=== PATIENT | male | born 1995 | race Two or more races ===

== ENCOUNTER 2024-11-18 07:58 | Emergency (ER) | payer MEDICAID, SELFPAY ==
[2024-11-18] VITALS (9 sets, daily range): BP systolic 141–153; BP diastolic 79–93; PULSE 70–88; RESP 15–19; TEMP 36.8–37.1; O2SAT 93–98; BMI 26.6
--- NOTE | 2024-11-18 | XR_ITS ---
MRI abdomen, without contrast. MRCP Date and time of exam: November 18, 2024 1741 hours INDICATIONS: Nausea vomiting beginning 1 week ago unable to eat 3 days Technique: Multiple axial and coronal images of the abdomen have been obtained with the Siemens 1.5T MRI scanner. Images obtained included T1 weighted transverse images, T2-weighted transverse images, T2-weighted transverse images fat-suppressed, T2 weighted haste fat suppressed transverse images, T1 weighted images, in and out of phase images, T2-weighted coronal images, breath hold, T2 weighted haze coronal images as well as T2 weighted coronal thick slab images, MRCP. Findings: Hepatomegaly 22 cm Negative for cholelithiasis, no convincing findings of cholecystitis Normal common hepatic common bile duct no stones No dilated pancreatic duct, no pancreatic edema and Negative for splenomegaly Aorta normal size No ascites No hydronephrosis Aorta normal size IMPRESSION: Hepatomegaly, 22 cm no focal liver lesions Negative for cholelithiasis, negative for cholecystitis No common hepatic or common bile duct stones. Negative for pancreatitis
--- NOTE | 2024-11-18 08:06 | EKG_ITS ---
[facility] Test Date: 2024-11-18 Pat Name: RORO DE OLIVEIRA Department: Room: - Gender: Male Specialist Wound Care: : 1995 Requested By: Gloria Arizmendi Order Number: [id number] Reading MD: Gloria Arizmendi Measurements Intervals [place] Rate: 81 P: 43 ID: [id number] QRS: 42 QRSD: 108 T: 41 QT: 387 QTc: 452 Interpretive Statements SINUS RHYTHM NONSPECIFIC T-WAVE ABNORMALITY No previous ECG available for comparison /store/S0/[id number]/ecg/[id number].pdf
--- NOTE | 2024-11-18 08:13 | PD.EDRME ---
Rapid Medical Screening Exam E Arrival date/time: 11/18/24 07:58 29-year-old male with no known medical history presents to the emergency room with a chief complaint of chest pain, palpitations, numbness to his bilateral hands, vomiting, diarrhea x 3 days. Patient states he is an alcoholic and drinks alcohol every day. I have greeted and performed a focused initial assessment of this patient. A comprehensive ED assessment and evaluation of the patient, analysis of all test results, and completion of the medical decision making process will be conducted by additional ED providers. Chief Complaint: Nausea/Vomiting/Diarrhea Time Seen by Provider: 11/18/24 08:06 Vital signs: Vital Signs Temperature 98.3 F 11/18/24 08:06 Pulse Rate 87 11/18/24 08:06 Respiratory Rate 18 11/18/24 08:06 Blood Pressure 144/92 H 11/18/24 08:06 Pulse Oximetry (%) 96 11/18/24 08:06 Oxygen Delivery Method Room Air 11/18/24 08:06 Vital signs reviewed by provider: Yes
[2024-11-18 09:07] LABS: Basophils # (Auto) 0.1 Thou/mm3 (0.0-0.2); Basophils % (Auto) 1 % (0-2.5); Eosinophils # (Auto) 0.0 Thou/mm3 (0.0-0.5); Eosinophils % (Auto) 1 % (0-10); Hematocrit 43.0 % (41.0-53.0); Hemoglobin 14.5 g/dL (13.5-16.0); Immature Granulocytes Auto 0.02 Thou/mm3 (0.00-0.00); Lymphocytes # (Auto) 1.1 Thou/mm3 (1.0-4.8); Lymphocytes % (Auto) 16 % (10-50); Mean Corpuscular HGB Conc 33.7 g/dl (31.0-37.0); Mean Corpuscular Hemoglobin 28.7 pg (25.0-35.0); Mean Corpuscular Volume 85 fL (80-100); Monocytes # (Auto) 0.7 Thou/mm3 (0.0-0.8); Monocytes % (Auto) 9 % (0-12); Neutrophils # (Auto) 5.1 Thou/mm3 (1.8-7.7); Neutrophils % (Auto) 73 % (37-80); Nucleated Red Blood Cell # 0.00 Thou/mm3 (0.00-0.00); Nucleated Red Blood Cell % 0 /100 WBC (0); Platelet Count 259 Thou/mm3 (140-440); RDW Standard Deviation 43.4 fL (35.1-43.9); Red Blood Count 5.05 Miln/mm3 (4.50-5.90); White Blood Count 7.1 Thou/mm3 (3.8-10.6)
[2024-11-18 09:11] LABS: Collection Type, Urine Clean Catch
[2024-11-18 09:24] LABS: Amphetamine/Methamp Scrn,U Negative (Negative); Barbiturate Screen,Urine Negative (Negative); Benzodiazepines Screen,Urine Negative (Negative); Benzoylecgonine Screen, Ur Negative (Negative); Fentanyl Screen,Urine Negative (Negative); Opiate Screen,Urine Negative (Negative); THC Screen,Urine Negative (Negative)
[2024-11-18 09:26] LABS: Alanine Aminotransferase 154 U/L (10-49); Albumin, Serum 4.9 gm/dL (3.5-5.0); Albumin/Globulin Ratio 1.4 (1.2-2.2); Alcohol, Blood Medical 31.7 mg/dL (0-10.0); Alkaline Phosphatase 146 U/L (46-116); Anion Gap 13 (7-16); Aspartate Amino Transferase 251 U/L (0-34); BUN/Creatinine Ratio 5 Ratio (12-20); Bilirubin,Total 2.0 mg/dL (0.3-1.2); Blood Urea Nitrogen < 5 mg/dL (9-23); Calcium 9.7 mg/dL (8.3-10.6); Calcium (Corrected) 9.7 mg/dL (8.5-10.1); Carbon Dioxide 31.5 mMol/L (20.0-31.0); Chloride 88 mMol/L (98-107); Creatinine (Component) 1.0 mg/dL (0.6-1.3); Estimated Creatinine Clearance 113.6 mL/min (>60); Globulin 3.4 gm/dL (2.3-3.5); Glucose 111 mg/dL (74-106); Magnesium 1.6 mg/dL (1.6-2.6); Osmolality,Calculated 262 (275-295); Potassium 2.9 mMol/L (3.4-5.1); Sodium 132 mMol/L (136-145); Total Protein 8.3 gm/dL (5.7-8.2); Troponin I < 0.002 ng/mL (0.0-0.045); eGFR > 60 See Note
[2024-11-18 09:27] LABS: B-Type Natriuretic Peptide < 20 pg/mL (0-100)
[2024-11-18 09:41] LABS: Bacteria,Urine Rare; Bilirubin,Urine Negative (Negative); Blood,Urine Negative (Negative); Color,Urine Yellow (Lt Yel-Yel); Glucose, Urine Negative (Negative); Hyaline Casts,Urine < 1 /hpf (0-1); Ketones,Urine Negative (Negative); Leukocyte Esterase,Urine Positive (Negative); Nitrite,Urine Negative (Negative); PH,Urine 6.5 (5.0-7.0); Protein,Urine Negative (Neg - Trace); RBC,Urine 1 /hpf (0-3); Specific Gravity,Urine 1.007 (1.001-1.035); Squamous Epithelial Cell,Urine 2 /hpf (0-5); Urobilinogen,Urine 4.0 mg/dL (0.0-1.0); WBC,Urine 6 /hpf (0-5)
[2024-11-18 09:44] LABS: Clarity,Urine Hazy (Clear/Hazy)
[2024-11-18] MEDS: DIAZEPAM INJ 5 MG/ML VIAL 2 ML 10 MG IVP (10:43)
[2024-11-18] MEDS: ONDANSETRON INJ 2 MG/ML INJ 2 ML 4 MG IVP ×2 (10:44→17:02)
[2024-11-18] MEDS: SODIUM CHLORIDE 0.9% 1000 ML 1,000 ML 999 ML IV ×2 (10:44→12:38)
--- NOTE | 2024-11-18 11:39 | XR_ITS ---
Examination: Abdomen sonogram, Limited Date and time of exam: November 28, 2024 1149 hours INDICATIONS: Elevated liver function tests on laboratory examination this week, vomiting Technique: Real-time penn scale transabdominal sonographic images of the upper abdomen obtained. Findings: Negative for gallstones Gallbladder wall 0.42 cm Common bile duct 0.5 cm Pancreatic head 2.8 cm Liver 20.9 cm fatty infiltration no focal liver lesions Normal hepatopedal portal venous flow Patent IVC IMPRESSION: Negative for gallstones Borderline thickening gallbladder wall, clinical correlation advised, consider HIDA scan or MRCP follow-up as clinically warranted Significant hepatomegaly fatty infiltration no focal liver lesions
--- NOTE | 2024-11-18 11:46 | EDNOTE_ITS ---
Nausea/Vomit./Diarrhea-RME/HPI General Chief complaint: Nausea/Vomiting/Diarrhea Stated complaint: Withdrawing ETOH, Vomiting, weak, unable to eat Time Seen by Provider: 11/18/24 08:06 Arrival date/time: 11/18/24 07:58 RME / HPI RME / HPI Narrative: 11/18/24 07:58 29-year-old male with no known medical history presents to the emergency room with a chief complaint of chest pain, palpitations, numbness to his bilateral hands, vomiting, diarrhea x 3 days. Patient states he is an alcoholic and drinks alcohol every day. I have greeted and performed a focused initial assessment of this patient. A comprehensive ED assessment and evaluation of the patient, analysis of all test results, and completion of the medical decision making process will be conducted by additional ED providers. DR. PASTOR MAIN ED EVALUATION: 29-year-old male with history of alcohol abuse presents to the Emergency Department with complaints of nausea, vomiting, and upper abdominal pain. He reports vomiting for the past 1.5 weeks, associated with generalized weakness, hot flashes, and heart palpitations. Patient states he has been trying to stop drinking alcohol, with his last drink being yesterday. Denies dysuria or urinary difficulties. No blood in vomit or stools reported. Related Data Previous Rx's ?Medication ?Instructions ?Recorded epinephrine 0.3 mg/0.3 mL 0.3 mg (0.3 mL) subcut .once PRN 02/04/19 injection, auto-injector (EpiPen hypersensitivity reac tion #2 ea 2-Jewel) famotidine 10 mg tablet (Acid 10 mg PO BID #14 tabs Production Operations Engineer (famotidine)) ondansetron HCl 4 mg tablet 4 mg PO Q8H #7 tabs (Zofran) ibuprofen 800 mg tablet 800 mg PO TID PRN pain #30 t abs 02/21/21 famotidine 20 mg tablet 20 mg PO QDAY #30 tabs 02/10 Allergies Allergy/AdvReac Type Severity Reaction Status Date / Time pantoprazole (From Protonix) Allergy Swelling Verified 11/18/24 08:03 of Lip/Tongue/Throat Review of Systems Review of Systems Systems Reviewed: All systems reviewed, normal except as documented Past Medical History Social History SMOKING STATUS: Never smoker SUBSTANCE USE: marijuana and crack/cocaine ALCOHOL: Current ALCOHOL FREQUENCY: 3 or More Drinks per Day ED Exam Narrative Physical exam: GENERAL APPEARANCE: alert and oriented x 4, well-developed, well-nourished, no acute distress VITALS: All vitals were reviewed and the pulse ox is 96% on room air, which is normal according to my interpretation. HEENT: Normocephalic, atraumatic; pupils equal, round, reactive to light; EOMI; mucous membranes pink, moist; oropharynx clear NECK: Supple LUNGS: CTABL; no wheezes, no rales, no rhonchi HEART: Regular rate, regular rhythm; normal S1, S2; no murmurs ABDOMEN: mild distended; normal BS; soft, no tenderness, no guarding, no rebound; no masses, no organomegaly, no hernia BACK: no CVA tenderness EXTREMITIES: atraumatic; no edema NEUROLOGIC: awake; alert and oriented x4; cranial nerves II-XII grossly intact; no focal sensory or motor deficits PSYCHIATRIC: appropriate mood and affect SKIN: warm, dry, normal color; no rashes Course Quality Measures none Orders Category Date Time Status EKG (ED ONLY) *Do not use* NOW Care 11/18/24 08:06 Completed IV [Insert IV] NOW Care 11/18/24 10:12 Active MRI Screening NOW Care 11/18/24 15:03 Active EKG (ED Only) Stat Exams 11/18/24 08:06 Draft MR MRCP Stat Exams 11/18/24 Ordered US abdomen limited Stat Exams 11/18/24 11:39 Completed Alcohol, Blood Medical Stat Lab 11/18/24 08:55 Completed B-Type Natriuretic Peptide Stat Lab 11/18/24 08:55 Completed CBC Stat Lab 11/18/24 08:55 Completed Comprehensive Metabolic Panel Stat Lab 11/18/24 08:55 Completed Drug Screen,Urine Stat Lab 11/18/24 09:06 Completed Lipase Stat Lab 11/18/24 08:55 Completed Magnesium Stat Lab 11/18/24 08:55 Completed Troponin I Stat Lab 11/18/24 08:55 Completed Urinalysis Stat Lab 11/18/24 09:06 Completed Diazepam Inj [Valium Inj] Med 11/18/24 10:12 Discontinued 10 mg IVP X1 ONE Diazepam Inj [Valium Inj] Med 11/18/24 16:16 Discontinued 5 mg IVP X1 ONE KCL 10% Liq UDC 15 ML Med 11/18/24 13:27 Discontinued 40 meq PO X1 ONE Magnesium Sulfate 2 GM Ivpb [Magnesium Sulfate Ivpb] Med 11/18/24 11:17 Discontinued 2 gm in 50 ml IV X1 Ondansetron Inj [Zofran Inj] Med 11/18/24 10:12 Discontinued 4 mg IVP X1 ONE Ondansetron Inj [Zofran Inj] Med 11/18/24 15:03 Discontinued 4 mg IVP X1 ONE POTASSIUM CHL 10 mEq IVPB [Kcl Ivpb] Med 11/18/24 11:16 Discontinued 10 meq in 100 ml IV Q1H Sodium Chloride 0.9% 1000 ml [Ns] 1,000 ml Med 11/18/24 10:13 Discontinued IV 999 mls/hr Sodium Chloride 0.9% 1000 ml [Ns] 1,000 ml Med 11/18/24 11:47 Discontinued IV 999 mls/hr Vital Signs Vital signs: Vital Signs Temperature 98.3 F 11/18/24 08:06 Pulse Rate 87 11/18/24 08:06 Respiratory Rate 18 11/18/24 08:06 Blood Pressure 144/92 H 11/18/24 08:06 Pulse Oximetry (%) 96 11/18/24 08:06 Oxygen Delivery Method Room Air 11/18/24 08:06 Nausea/Vomiting/Diarrhea MDM Narrative MDM Narrative:: I, Chula Plasencia, am scribing for and in the presence of Dr. Pastor. Patient data External records reviewed:: [facility] previous records Clinical information provided by:: patient Social determinants that could affect healthcare access:: alcohol use Patient has the following chronic illnesses:: Alcohol abuse How is presenting disease/condition affected by chronic disease/condition?: exacerbated by Evaluation data The following diagnostics were reviewed and interpreted by me:: lab results, radiology exam(s) and EKG tracing(s) (My interpretation: EKG performed at 0808 hours, sinus rhythm, rate 81, T wave inversion in V1-V2) Lab and/or radiology exams considered but not ordered:: none Interpretation Summary: Liver labs abnormal. - Procedure(s): US abdomen limited Accession Number(s): [id number] cc: Arsh Goodman MD; NO PRIMARY/FAMILY,PHYSICIAN; Gloria Pastor MD~ Examination: Abdomen sonogram, Limited Date and time of exam: November 28, 2024 1149 hours INDICATIONS: Elevated liver function tests on laboratory examination this week, vomiting Technique: Real-time penn scale transabdominal sonographic images of the upper abdomen obtained. Findings: Negative for gallstones Gallbladder wall 0.42 cm Common bile duct 0.5 cm Pancreatic head 2.8 cm Liver 20.9 cm fatty infiltration no focal liver lesions Normal hepatopedal portal venous flow Patent IVC IMPRESSION: Negative for gallstones Borderline thickening gallbladder wall, clinical correlation advised, consider HIDA scan or MRCP follow-up as clinically warranted Significant hepatomegaly fatty infiltration no focal liver lesions Dictated By: Arsh Goodman MD Medications / Prescriptions Medications / Prescriptions considered but not ordered:: none Medication administrations:: Medication Administration History Discontinued Medications Diazepam (Diazepam Inj 5 Mg/Ml Vial 2 Ml) 10 mg IVP X1 ONE Stop: 11/18/24 10:13 Last Admin: 11/18/24 10:43 Dose: 10 mg Documented By: KEVIN Diazepam (Diazepam Inj 5 Mg/Ml Vial 2 Ml) 5 mg IVP X1 ONE Stop: 11/18/24 16:17 Last Admin: 11/18/24 17:31 Dose: 5 mg Documented By: KEVIN Sodium Chloride (Ns) 1,000 mls @ 999 mls/hr IV .Q1H1M ONE Stop: 11/18/24 11:13 Last Infusion: 11/18/24 11:15 Dose: Infused Documented By: Admin: 11/18/24 10:44 Dose: 999 mls/hr Documented By: KEVIN Potassium Chloride (Kcl Ivpb) 10 meq in 100 mls @ 100 mls/hr IV Q1H KENIA Stop: 11/18/24 15:15 Last Infusion: 11/18/24 17:41 Dose: Infused Documented By: Infusion: 11/18/24 17:33 Dose: Infused Documented By: Admin: 11/18/24 17:03 Dose: 100 mls/hr Documented By: Infusion: 11/18/24 16:18 Dose: Infused Documented By: Admin: 11/18/24 15:14 Dose: 100 mls/hr Documented By: Infusion: 11/18/24 15:05 Dose: Infused Documented By: Admin: 11/18/24 14:01 Dose: 100 mls/hr Documented By: Infusion: 11/18/24 13:53 Dose: Infused Documented By: Admin: 11/18/24 12:38 Dose: 100 mls/hr Documented By: CG Magnesium Sulfate (Magnesium Sulfate Ivpb) 2 gm in 50 mls @ 25 mls/hr IV X1 ONE Stop: 11/18/24 13:16 Last Infusion: 11/18/24 15:06 Dose: Infused Documented By: Admin: 11/18/24 12:38 Dose: 25 mls/hr Documented By: CG Sodium Chloride (Ns) 1,000 mls @ 999 mls/hr IV .Q1H1M ONE Stop: 11/18/24 12:47 Last Infusion: 11/18/24 13:53 Dose: Infused Documented By: Admin: 11/18/24 12:38 Dose: 999 mls/hr Documented By: CG Ondansetron HCl (Ondansetron Inj 2 Mg/Ml Inj 2 Ml) 4 mg IVP X1 ONE; Protocol Stop: 11/18/24 10:13 Last Admin: 11/18/24 10:44 Dose: 4 mg Documented By: CG Ondansetron HCl (Ondansetron Inj 2 Mg/Ml Inj 2 Ml) 4 mg IVP X1 ONE; Protocol Stop: 11/18/24 15:04 Last Admin: 11/18/24 17:02 Dose: 4 mg Documented By: CG Potassium Chloride (Potassium Chloride 10% 20 Meq/15 Ml Udc) 40 meq PO X1 ONE Stop: 11/18/24 13:28 Last Admin: 11/18/24 17:03 Dose: 40 meq Documented By: CG see above Consultations Consultation(s) initiated? (list below): No Diagnosis Nausea Differential Diagnosis: other (alcohol withdrawal, alcoholic gastritis, acute pancreatitis) Most likely diagnosis given after review of the tests above:: No official diagnoses at this time, still pending diagnostic tests. Patient signout to the manufacturing supervisor 2nd shift provider. Admission Indicated Admission indicated?: not indicated Explain why admission is indicated or not indicated:: No final disposition plan at this time, still pending diagnostic tests. Patient signout to the manufacturing supervisor 2nd shift provider. Admission Request Was there a request for admission?: No Disposition Plan Disposition Plan: other (specify) (Patient signed out to Dr. Reyez, pending MRCP and final disposition.) Discharge Plan Prescriptions/Referrals Prescriptions/Med Rec: No Action epinephrine [EpiPen 2-Jewel] 0.3 mg/0.3 mL auto-injector 0.3 mg SC .once PRN (Reason: hypersensitivity reaction) Qty: 2 0RF ondansetron HCl [Zofran] 4 mg tablet 4 mg PO Q8H Qty: 7 0RF famotidine [Acid Production Operations Engineer (famotidine)] 10 mg tablet 10 mg PO BID Qty: 14 0RF ibuprofen 800 mg tablet 800 mg PO TID PRN (Reason: pain) Qty: 30 0RF famotidine 20 mg tablet 20 mg PO QDAY Qty: 30 0RF Referrals: No Primary/Family,Physician [Primary Care Provider] - In 1 week Problem List Clinical Impression: Hepatomegaly, Transaminitis, Alcohol abuse, Hypokalemia Patient/Caregiver Discharge Instructions Education Materials: Alcoholism: Getting Help, ED Hypokalemia Print Language: [place]ican
[2024-11-18 12:31] LABS: Lipase 32 U/L (12-53)
[2024-11-18] MEDS: Magnesium Sulfate 2 GM Ivpb 2 GM/50 ML BAG IV (12:38)
[2024-11-18] MEDS: POTASSIUM CHL 10 mEq IVPB 10 MEQ/100 ML BAG 100 MEQ IV ×4 (12:38→17:03)
[2024-11-18] MEDS: POTASSIUM CHLORIDE 10% 20 MEQ/15 ML UDC 40 MEQ PO (17:03)
[2024-11-18] MEDS: DIAZEPAM INJ 5 MG/ML VIAL 2 ML IVP (17:31)
--- NOTE | 2024-11-18 18:08 | EDNOTE_ITS ---
Emergency Room Addendum Addendum Narrative: 1800: Care assumed from Dr. Pastor, the previous shift emergency physician. Past medical, surgical, social and family history reviewed. Vitals and home medications reviewed. Results and treatment plan discussed. I will assume the care of the patient at this time and will follow the patient, pending MRCP. Please refer to the emergency department record for history and examination from initial visit. 29yo male with a history of alcohol dependence, on recent binge, most recently drank 1 day [employer] presents with persistent nausea, vomiting, and diarrhea - without blood. Also complains of mild diffuse upper abdominal pain. Medical exam after treatment with IV fluids and incremental dosing with benzodiazepines demonstrates calm patient without signs of active withdrawal and currently denies any abdominal pain. Abdominal exam is benign. Lab markers pertinent for hypokalemia with Potassium 2.9, mild elevated BS of 111, and markedly elevated LFTs above base total bilirubin 2.2, AST 251 and ALT 154 with alkaline phosphatase 146. UA demonstrates evidence of infection, UDS negative, Alcohol level 31.7. US performed and demonstrates evidence of borderline gallbladder wall thickening and MRCP was suggested. MRCP results demonstrate hepatomegaly without signs of cholecystitis or cholelithiasis, normal CBD, no ascites. Lab markers consistent with chronic alcoholism. Will offer patient short course of benzodiazepines for detox therapy and PPI. Patient is aware if he were to continue to drink while taking Librium, that there is a potential of . Will refer to GI specialist and discharge with precaution instructions. RADIOLOGY RESULTS: [place] [facility] Report Signed Patient: RORO DE OLIVEIRA. Record#: [id number] Birthdate: 1995 Age/Sex: 29 / M Location: [facility] Attending Dr: Ordering Physician: Gloria Pastor MD Date of Service: 11/18/24 Procedure(s): MR MRCP Accession Number(s): [id number] cc: Arsh Goodman MD; NO PRIMARY/FAMILY,PHYSICIAN; Gloria Pastor MD~ MRI abdomen, without contrast. MRCP Date and time of exam: November 18, 2024 1741 hours INDICATIONS: Nausea vomiting beginning 1 week ago unable to eat 3 days Technique: Multiple axial and coronal images of the abdomen have been obtained with the Siemens 1.5T MRI scanner. Images obtained included T1 weighted transverse images, T2-weighted transverse images, T2-weighted transverse images fat-suppressed, T2 weighted haste fat suppressed transverse images, T1 weighted images, in and out of phase images, T2-weighted coronal images, breath hold, T2 weighted haze coronal images as well as T2 weighted coronal thick slab images, MRCP. Findings: Hepatomegaly 22 cm Negative for cholelithiasis, no convincing findings of cholecystitis Normal common hepatic common bile duct no stones No dilated pancreatic duct, no pancreatic edema and Negative for splenomegaly Aorta normal size No ascites No hydronephrosis Aorta normal size IMPRESSION: Hepatomegaly, 22 cm no focal liver lesions Negative for cholelithiasis, negative for cholecystitis No common hepatic or common bile duct stones. Negative for pancreatitis Dictated By: Arsh Goodman MD Signed By: <Electronically signed by Arsh Goodman MD in [place]> 11/18/24 7933
[2024-11-18] MEDS: FOLIC ACID INJ 1 MG/0.2 ML IVP (20:23)
[2024-11-18] MEDS: THIAMINE INJ 100 MG/ML VIAL 2 ML IVP (20:23)
[2024-11-18] MEDS: cefTRIAXone/D5w 1gm IV premix 1 GM/50 ML BAG IV (20:26)
== END 2024-11-18 21:24 | disposition home or self-care (01) ==
PROVIDERS: Nurse Practitioner Family; Emergency Provider Emergency Medicine
DX: F10.20 Alcohol dependence, uncomplicated (principal); E87.6 Hypokalemia; R16.0 Hepatomegaly, not elsewhere classified; R74.01 Elevation of levels of liver transaminase levels; K82.8 Other specified diseases of gallbladder; R94.31 Abnormal electrocardiogram [ECG] [EKG]; Y90.1 Blood alcohol level of 20-39 mg/100 ml
CPT/HCPCS: 36415; 74181; 76705; 80053; 80307; 80320; 81001; 83690; 83735; 83880; 84484; 85025; 93005; 96361; 96365; 96366; 96375; 96376; 99283; J0696; J2405; J3360; J3411; J3475; J3480; J3490; J7030; A9270; G0480